=== PATIENT | female | born 1965 | race Caucasian/White ===

== ENCOUNTER 2020-05-09 13:13 | Emergency (ER) | payer BC ==
[2020-05-09] MEDS ORDERED: LORazepam 2 MG/ML SDV IVPUSH ONE (13:29)
[2020-05-09] MEDS ORDERED: Sodium Chloride 0.9% 10 ML Syringe FLUSH PRN (13:29)
[2020-05-09] MEDS ORDERED: Aspirin 81 MG Tab.Chew PO ONE (13:30)
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
--- NOTE | 2020-05-09 14:13 | CR ---
Chest: 2 views of the chest were obtained. Comparison: No prior chest imaging is available. Heart size and mediastinum are normal. Minimal discoid atelectasis or scarring is seen within the right middle lobe. Lungs otherwise are clear. Mild scattered endplate spurring is noted within the spine. Impression: 1. Nothing acute is seen on 2 view chest x-ray. Diagnostic code #2 This report was dictated in MDT
[2020-05-09 16:03] LABS: HEMOGLOBIN A1C 9.8 % (4.50-6.20)
== END 2020-05-09 17:45 | disposition home or self-care (01) ==
LOC: JD.ED 13:13
DX: F41.9 Anxiety disorder, unspecified (principal); R73.9 Hyperglycemia, unspecified; I25.2 Old myocardial infarction; Z79.84 Long term (current) use of oral hypoglycemic drugs
CPT/HCPCS: 36415; 71046; 80053; 81001; 82009; 83036; 84439; 84443; 84484; 85025; 85379; 93005; 96374; 99285; A9270; J2060